=== PATIENT | female | born 1985 | race African-American/Black ===

== ENCOUNTER 2016-12-25 22:25 | Emergency (ER) | payer OTHER ==
[~2016-12-25] VITALS: Ht 160 cm; Wt 81.6 kg
[~2016-12-25 22:25] MED LIST: AZITHROMYCIN250 MG ORAL; BACTRIM-DS1 EA ORAL; BENADRYL25 MG ORAL; FAMOTIDINE20 MG ORAL; GNP THERAPEUTI1 EACH PO; HYDROCODON-ACE1 EA13 ORAL; IBUPROFEN600 MG ORAL; KEFLEX500 MG ORAL; NAPROSYN500 M1 ORAL; NEXIUM40 MG ORAL; NKM; PREDNISONE10 MG ORAL; TAMIFLU75 MG ORAL; ZANTAC150 MG ORAL; ZOFRAN ODT4 MG ORAL
--- NOTE | 2016-12-25 22:56 | Emergency Room Report ---
History of Present Illness General Chief Complaint: Vaginal Source: Patient Present Illness HPI Patient presents with complaints of possible yeast infection She reports that she has irritation and burning to her vaginal area Denies any fevers or chills denies any pelvic pain denies any dysuria frequency Denies any back or flank pain Denies any chest pain or short of breath Symptoms ongoing for the past 3 days Allergies: Coded Allergies: No Known Allergies (Unverified , 03/21/16) Patient History Past Medical History: see triage record Pertinent Family History: none Last Menstrual Period: november Reviewed Nursing Documentation: PMH: Agreed, PSxH: Agreed Nursing Documentation-PMH Hx Gastrointestinal Problems: Yes - GERD Review of Systems All Other Systems: negative except mentioned in HPI Physical Exam Vital Signs Date Time Temp Pulse Resp B/P Pulse Ox O2 Delivery O2 Flow Rate FiO2 12/25/16 22:33 98.4 81 16 128/81 98 Room Air Sp02 EP Interpretation: reviewed, normal General Appearance: well appearing, no apparent distress Head: normocephalic, atraumatic Eyes: bilateral eye EOMI, bilateral eye PERRL ENT: hearing grossly normal, normal pharynx, TMs + canals normal, uvula midline Neck: full range of motion, supple, no meningismus, no bony tend Respiratory: lungs clear, normal breath sounds, no rhonchi, no respiratory distress, no retraction, no accessory muscle use Cardiovascular #1: normal peripheral pulses, regular rate, rhythm, no edema, no gallop, no JVD, no murmur Gastrointestinal: normal bowel sounds, non tender, soft, no mass, no organomegaly, non-distended, no guarding, no hernia, no pulsatile mass, no rebound Genitourinary: no CVA tenderness, other - Mild vaginal irritation, lip or a major and minor mild erythema Musculoskeletal: back normal Neurologic: oriented x3, responsive, beauty artist III-XII nml as tested, motor strength/ tone normal, sensory intact Psychiatric: mood/affect normal Skin: normal color, no rash, warm/dry, palpation normal Lymphatic: normal inspection, no adenopathy Medical Decision Making Diagnostic Impression: Primary Impression: UTI (urinary tract infection) Additional Impression: Vaginitis ER Course She clinically appears to have evidence of vaginitis There is also evidence of UTI Patient placed on the appropriate medications and requires close outpatient followup Labs Test 12/25/16 22:43 Urine Color Lynda Urine Appearance Slightly cloudy Urine pH 6.5 (4.5-8.0) Urine Specific [place] 1.020 (1.005-1.035) Urine Protein 1+ (NEGATIVE) Urine Glucose (UA) Negative (NEGATIVE) Urine Ketones Negative (NEGATIVE) Urine Occult Blood Negative (NEGATIVE) Urine Nitrite Positive (NEGATIVE) Urine Bilirubin Negative (NEGATIVE) Urine Ictotest Negative Urine Urobilinogen Normal MG/DL (0.0-1.0) Urine Leukocyte Esterase 1+ (NEGATIVE) Urine RBC 0 /HPF (0 - 2) Urine WBC 5-10 /HPF (0 - 2) Urine Squamous Epithelial Cells Many /LPF (NONE/OCC) Urine Bacteria Many /HPF (NONE) Urine Mucus Few /LPF (NONE/OCC) Urine HCG, Qualitative Negative Chest X-Ray Diagnostic Results Chest X-Ray Ordered: No Last Vital Signs Date Time Temp Pulse Resp B/P Pulse Ox O2 Delivery O2 Flow Rate FiO2 12/25/16 22:33 98.4 81 16 128/81 98 Room Air Status: improved Disposition: HOME, SELF-CARE Condition: Stable Scripts Ciprofloxacin Hcl* (CIPROFLOXACIN HCL*) 500 Mg Tablet 500 MG ORAL Q12H, #14 TAB 0 Refills Prov: NATALIA GROVE D.O. 12/26/16 Metronidazole* (METROGEL-VAGINAL*) 70 Gm Gel.w.appl 1 APPL VAGIN EVERY 12 HOURS for 7 Days, #70 GM Prov: NATALIA GROVE D.O. 12/26/16 Additional Instructions: Patient is provided with the discharge instructions notified to follow up with primary doctor in the next 2-3 days otherwise return to the er with any worsening symptoms. Please note that this report is being documented using [employer] technology. This can lead to erroneous entry secondary to incorrect interpretation by the dictating instrument. NATALIA GROVE D.O. Dec 25, 2016 22:56
[2016-12-25 23:01] LABS: APPEARANCE,URINE SLIGHTLY CLOUDY; KETONES,URINE NEGATIVE (NEGATIVE); LEUKOCYTE ESTERASE ,URINE 1+ (NEGATIVE); NITRITE,URINE POSITIVE (NEGATIVE); PH,URINE 6.5 (4.5-8.0); PROTEIN,URINE 1+ (NEGATIVE); UROBILINOGEN,URINE NORMAL MG/DL (0.0-1.0)
[2016-12-25 23:08] LABS: BACTERIA,URINE MANY /HPF; ICTOTEST NEGATIVE; MUCUS,URINE FEW /LPF (NONE/OCC); RBC,URINE 0 /HPF (0 - 2); SQUAMOUS EPITHELIAL CELL,UR MANY /LPF (NONE/OCC)
[2016-12-26] MEDS ORDERED: CIPROFLOXACIN500 M2 ORAL (00:20)
[2016-12-26] MEDS ORDERED: METROGEL-VAGINA70 G1 VAGIN (00:20)
[2016-12-26 00:28] VITALS: BP 129/78
[2016-12-26 00:29] VITALS: BP 129/78
== END 2016-12-26 00:29 | disposition home or self-care (01) ==
LOC: EMR 23:00
DX: N39.0 Urinary tract infection, site not specified (principal); N76.0 Acute vaginitis; K21.9 Gastro-esophageal reflux disease without esophagitis
CPT/HCPCS: 81003; 81025; 87086; 99284

== ENCOUNTER 2017-05-10 18:57 | Emergency (ER) | payer OTHER ==
[~2017-05-10] VITALS: Ht 160 cm; Wt 81.6 kg
[~2017-05-10 18:57] MED LIST changes: +CIPROFLOXACIN500 M2 ORAL; +METROGEL-VAGINA70 G1 VAGIN
[2017-05-10 19:15] VITALS: BP 134/80
[2017-05-10 19:46] LABS: BASOPHILS % (AUTO) 1.2 % (0.0-2.0); EOSINOPHILS % (AUTO) 2.8 % (0.0-3.0); LYMPHOCYTES % (AUTO) 37.9 % (20.0-45.0); MEAN CORPUSCULAR HEMOGLOBIN 23.9 PG (27.0-31.0); MEAN CORPUSCULAR HGB CONC 29.1 G/DL (32.0-36.0); MEAN CORPUSCULAR VOLUME 82 FL (80-99); MONOCYTES % (AUTO) 6.7 % (1.0-10.0); NEUTROPHILS % (AUTO) 51.4 % (45.0-75.0); PLATELET COUNT 227 K/UL (150-450); RED BLOOD COUNT 4.19 M/UL (4.20-5.40); RED CELL DISTRIBUTION WIDTH 16.6 % (11.6-14.8); WHITE BLOOD COUNT 7.8 K/UL (4.8-10.8)
[2017-05-10] MEDS ORDERED: Sodium Chloride 500ML 500 ML IV ONE (19:48)
[2017-05-10] MEDS ORDERED: PEPCID40 MG PO (19:52)
--- NOTE | 2017-05-10 19:52 | Emergency Room Report ---
History of Present Illness General Chief Complaint: Abdominal Pain Source: Patient Present Illness HPI 32-year-old female history of GERD presenting with abdominal pain for a few days Patient states pain started gradually , localized to epigastric area, non radiating, burning in nature, intermittent. No relieving or exacerbating factors. Denies nvd. Denies fever, chills. No hx of abdominal surgeries. No hx of endoscopies/colonoscopies. Patient states that she was taking Prilosec at a time, but stopped because symptoms subsided Allergies: Coded Allergies: No Known Allergies (Unverified , 03/21/16) Patient History Past Medical History: see triage record Past Surgical History: none Pertinent Family History: none Last Menstrual Period: apr 04 Now: No : 1 Reviewed Nursing Documentation: PMH: Agreed, PSxH: Agreed Nursing Documentation-PMH Past Medical History: No Stated History Hx Gastrointestinal Problems: Yes - GERD Review of Systems All Other Systems: negative except mentioned in HPI Physical Exam Vital Signs Date Time Temp Pulse Resp B/P (MAP) Pulse Ox O2 Delivery O2 Flow Rate FiO2 05/10/17 19:09 98.4 101 18 134/80 98 Room Air Sp02 EP Interpretation: reviewed, normal General Appearance: normal inspection, well appearing, no apparent distress, alert, GCS 15, non-toxic Head: normocephalic, atraumatic Eyes: bilateral eye normal inspection, bilateral eye PERRL, bilateral eye EOMI ENT: normal ENT inspection, normal pharynx, normal voice, moist mucus membranes Neck: normal inspection, full range of motion, supple Respiratory: normal inspection, lungs clear, normal breath sounds, no respiratory distress, no retraction, no wheezing, speaking full sentences, chest symmetrical Cardiovascular #1: normal inspection, regular rate, rhythm, no edema, normal capillary refill Cardiovascular #2: 2+ radial (R), 2+ radial (L) Gastrointestinal: normal inspection, non tender, soft, non-distended, no guarding Musculoskeletal: normal inspection, back normal, normal range of motion, non- tender Neurologic: normal inspection, alert, oriented x3, responsive, motor strength/ tone normal, sensory intact, normal gait, speech normal Psychiatric: normal inspection, judgement/insight normal, memory normal Skin: normal inspection, normal color, no rash, warm/dry, well hydrated, normal turgor Medical Decision Making Diagnostic Impression: Primary Impression: Additional Impression: GERD (gastroesophageal reflux disease) ER Course 32-year-old female with upper abdominal pain Differential Diagnosis: GERD Gastritis, gastroenteritis,, UTI/pyelo At this time abdomen is soft nontender, not likely to have acute intra- abdominal surgical pathology, will hold CT for now. Plan: Basic labs, ua, Pepcid, maalox, pain control, IVF ER course: Patient has remained stable during ED stay. Pain improved. Repeat abdominal exam is nontender. Tolerating PO Patient's abdomen was never tender is positive No vaginal bleeding Disposition: Patient is to be discharged to home. Prescriptions given are Pepcid Patient instructed to followup with [employer] in one week Patient is instructed to follow up with their primary care doctor within 5 days. Strict return precautions discussed with patient such as fever, chills, worsening/severe abdominal pain, nausea, vomiting, black or bloody stools, which may indicate severe illness. Patient verbalizes understanding and agrees with plan. Please note that this Emergency Department Report was dictated using Netscapeenvironment[employer] quality analyst technology software, occasionally this can lead to erroneous entry secondary to interpretation by the dictation equipment Laboratory Tests Test 05/10/17 19:13 05/10/17 19:15 Urine Color Pale yellow Urine Appearance Clear Urine pH 6 (4.5-8.0) Urine Specific [place] 1.015 (1.005-1.035) Urine Protein Negative (NEGATIVE) Urine Glucose (UA) Negative (NEGATIVE) Urine Ketones Negative (NEGATIVE) Urine Occult Blood Negative (NEGATIVE) Urine Nitrite Negative (NEGATIVE) Urine Bilirubin Negative (NEGATIVE) Urine Urobilinogen Normal MG/DL (0.0-1.0) Urine Leukocyte Esterase Negative (NEGATIVE) Urine HCG, Qualitative Positive White Blood Count 7.8 K/UL (4.8-10.8) Red Blood Count 4.19 M/UL (4.20-5.40) L Hemoglobin 10.0 G/DL (12.0-16.0) L Hematocrit 34.4 % (37.0-47.0) L Mean Corpuscular Volume 82 FL (80-99) Mean Corpuscular Hemoglobin 23.9 PG (27.0-31.0) L Mean Corpuscular Hemoglobin Concent 29.1 G/DL (32.0-36.0) L Red Cell Distribution Width 16.6 % (11.6-14.8) H Platelet Count 227 K/UL (150-450) Mean Platelet Volume 7.0 FL (6.5-10.1) Neutrophils (%) (Auto) 51.4 % (45.0-75.0) Lymphocytes (%) (Auto) 37.9 % (20.0-45.0) Monocytes (%) (Auto) 6.7 % (1.0-10.0) Eosinophils (%) (Auto) 2.8 % (0.0-3.0) Basophils (%) (Auto) 1.2 % (0.0-2.0) Sodium Level 136 MMOL/L (136-145) Potassium Level 3.4 MMOL/L (3.5-5.1) L Chloride Level 102 MMOL/L (98-107) Carbon Dioxide Level 23 MMOL/L (21-32) Anion Gap 11 mmol/L (5-15) Blood Urea Nitrogen 11 mg/dL (7-18) Creatinine 0.7 MG/DL (0.55-1.30) Estimate Glomerular Filtration Rate > 60 mL/min (>60) Glucose Level 103 MG/DL (74-106) Calcium Level 9.3 MG/DL (8.5-10.1) Total Bilirubin 0.2 MG/DL (0.2-1.0) Aspartate Amino Transferase (AST) 11 U/L (15-37) L Alanine Aminotransferase (ALT) 16 U/L (12-78) Alkaline Phosphatase 79 U/L (46-116) Total Protein 7.3 G/DL (6.4-8.2) Albumin 3.7 G/DL (3.4-5.0) Globulin 3.6 g/dL Albumin/Globulin Ratio 1.0 (1.0-2.7) Lipase 137 U/L (73-393) Human Chorionic Gonadotropin, Quant Pending Last Vital Signs Date Time Temp Pulse Resp B/P (MAP) Pulse Ox O2 Delivery O2 Flow Rate FiO2 05/10/17 19:09 98.4 101 18 134/80 98 Room Air Disposition: HOME, SELF-CARE Condition: Improved Scripts Famotidine (PEPCID) 40 Mg Tablet 40 MG PO DAILY for 14 Days, #14 TAB 0 Refills Prov: Joann Gage M.D. 05/10/17 Patient Instructions: Abdominal Pain, Adult, Gastritis, Adult Retino,Clairose M.D. May 10, 2017 19:52
[2017-05-10] MEDS ORDERED: Dicyclomine HCl 10mg/5ml oral soln ORAL ONE (20:00)
[2017-05-10] MEDS ORDERED: Mylanta II UD 30ml ORAL ONE (20:00)
[2017-05-10] MEDS ORDERED: Lidocaine 2% Visc 15ml soln ORAL ONE (20:00)
[2017-05-10 20:02] LABS: APPEARANCE,URINE CLEAR; KETONES,URINE NEGATIVE (NEGATIVE); LEUKOCYTE ESTERASE ,URINE NEGATIVE (NEGATIVE); NITRITE,URINE NEGATIVE (NEGATIVE); PH,URINE 6 (4.5-8.0); PROTEIN,URINE NEGATIVE (NEGATIVE); UROBILINOGEN,URINE NORMAL MG/DL (0.0-1.0)
[2017-05-10 20:26] LABS: ALANINE AMINOTRANSFERASE 16 U/L (12-78); ANION GAP 11 mmol/L (5-15); ASPARTATE AMINO TRANSFERASE 11 U/L (15-37); CALCIUM 9.3 MG/DL (8.5-10.1); CARBON DIOXIDE 23 MMOL/L (21-32); CHLORIDE 102 MMOL/L (98-107); CREATININE 0.7 MG/DL (0.55-1.30); GLOMERULAR FILTRATION RATE > 60 mL/min (>60); LIPASE 137 U/L (73-393); POTASSIUM 3.4 MMOL/L (3.5-5.1); SODIUM 136 MMOL/L (136-145); TOTAL PROTEIN 7.3 G/DL (6.4-8.2)
[2017-05-10 21:15] VITALS: BP_SYST 127; BP_SYST 134; BP_DIAS 80; BP_DIAS 83
== END 2017-05-10 21:15 | disposition home or self-care (01) ==
LOC: EMR 20:42
DX: O26.899 Other specified pregnancy related conditions, unspecified trimester (principal); Z3A.00 Weeks of gestation of pregnancy not specified; K21.9 Gastro-esophageal reflux disease without esophagitis; R10.13 Epigastric pain
CPT/HCPCS: 36415; 80053; 81003; 81025; 83690; 84702; 85025; 96361; 96374; 96375; 99284; J7040; S0028

== ENCOUNTER 2017-09-14 10:18 | Emergency (ER) | payer OTHER ==
[~2017-09-14] VITALS: Ht 160 cm; Wt 88.5 kg
[~2017-09-14 10:18] MED LIST changes: +PEPCID40 MG PO
[2017-09-14] MEDS ORDERED: Pseudoephedrine 30mg tab ORAL ONE (11:00)
[2017-09-14] MEDS ORDERED: Acetaminophen 500mg (ES) tab ORAL ONE (11:00)
[2017-09-14 12:56] LABS: APPEARANCE,URINE SLIGHTLY CLOUDY; BILIRUBIN, URINE NEGATIVE (NEGATIVE); COLOR,URINE PALE YELLOW; GLUCOSE, URINE (UA) NEGATIVE (NEGATIVE); KETONES,URINE 4+ (NEGATIVE); LEUKOCYTE ESTERASE ,URINE 1+ (NEGATIVE); NITRITE,URINE POSITIVE (NEGATIVE); PH,URINE 6 (4.5-8.0); PROTEIN,URINE NEGATIVE (NEGATIVE); UROBILINOGEN,URINE NORMAL MG/DL (0.0-1.0)
--- NOTE | 2017-09-14 13:59 | Emergency Room Report ---
History of Present Illness General Chief Complaint: Flu Like Symptoms Source: Patient Present Illness HPI Patient with URI. 5 months with twins. Took children's tylenol last night. Fevers, aches, sore throat, nasal congestion and cough. Denies wheezing. Pain rated 10/10, constant, all of body, throat. No NVD, no dysuria. No vaginal d/c. Babies moving. No leg swelling or calf tenderness. EDC 6/2. Still working with child at home. 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) Last Menstrual Period: 5 months ago Now: Yes : 2 Para: 1 Reviewed Nursing Documentation: PMH: Agreed, PSxH: Agreed Nursing Documentation-PMH Past Medical History: No Stated History Hx Gastrointestinal Problems: Yes - GERD Review of Systems All Other Systems: negative except mentioned in HPI Physical Exam Vital Signs Date Time Temp Pulse Resp B/P (MAP) Pulse Ox O2 Delivery O2 Flow Rate FiO2 09/14/17 10:35 101.1 126 20 112/68 99 Room Air 101.1 Sp02 EP Interpretation: reviewed, normal General Appearance: well appearing, no apparent distress, GCS 15 Head: normocephalic, atraumatic Eyes: bilateral eye normal inspection, bilateral eye PERRL ENT: TMs + canals normal, moist mucus membranes, pharyngeal erythema Neck: supple Respiratory: lungs clear, normal breath sounds Cardiovascular #1: regular rate, rhythm Cardiovascular #2: 2+ radial (R) Gastrointestinal: normal inspection, normal bowel sounds, non tender, non- distended, other - gravid Genitourinary: no CVA tenderness, other - ultrasound with both babies moving and normal HRs (tachyy) Musculoskeletal: back normal, gait/station normal, normal range of motion, no calf tenderness Neurologic: alert, oriented x3, grossly normal Psychiatric: mood/affect normal Skin: normal inspection, warm/dry Medical Decision Making Diagnostic Impression: Primary Impression: Upper respiratory infection Qualified Codes: J06.9 - Acute upper respiratory infection, unspecified Additional Impression: , twins Qualified Codes: O30.002 - Twin , unspecified number of placenta and unspecified number of amniotic sacs, second trimester ER Course Patient 5 month /twins with URI. DDx: bronchitis, URI, pharyngitis amongst others. Febrile. Symptomatic treatment. Evaluation of . UA checked. Based on ox, not pneumonia. Consider influenza but was vaccinated and post-peak. UA with nitrites and 2-4 WBC. Discussed with OB who suggests following and not treating with antibiotics. Improved with treatment and sleeping. Patient stable for outpatient treatment and observation. Plant to see OB tomorrow. Laboratory Tests Test 09/14/17 11:12 Urine Color Pale yellow Urine Appearance Slightly cloudy Urine pH 6 (4.5-8.0) Urine Specific [place] 1.020 (1.005-1.035) Urine Protein Negative (NEGATIVE) Urine Glucose (UA) Negative (NEGATIVE) Urine Ketones 4+ (NEGATIVE) H Urine Occult Blood Negative (NEGATIVE) Urine Nitrite Positive (NEGATIVE) H Urine Bilirubin Negative (NEGATIVE) Urine Urobilinogen Normal MG/DL (0.0-1.0) Urine Leukocyte Esterase 1+ (NEGATIVE) H Urine RBC 0-2 /HPF (0 - 2) Urine WBC 2-4 /HPF (0 - 2) Urine Squamous Epithelial Cells Moderate /LPF (NONE/OCC) H Urine Bacteria Few /HPF (NONE) Last Vital Signs Date Time Temp Pulse Resp B/P (MAP) Pulse Ox O2 Delivery O2 Flow Rate FiO2 09/14/17 14:20 98.2 102 16 111/64 96 Room Air Status: improved Disposition: HOME, SELF-CARE Condition: Improved Scripts Guaifenesin/Dextromethorphan (ROBITUSSIN COUGH-CHEST DM LIQ) 237 Ml Liquid 5 ML PO Q6HR, #90 ML Prov: Elvis Garcia M.D. 09/14/17 Pseudoephedrine Hcl* (SUDAFED*) 30 Mg Tablet 30 MG PO Q6H, #14 TAB 1 Refill Prov: Elvis Garcia M.D. 09/14/17 Referrals: [facility]ERR[facility] (PCP) Elvis Garcia M.D. Sep 14, 2017 13:59
[2017-09-14] MEDS ORDERED: PSEUDOEPHEDRINE30 MG PO (14:07)
[2017-09-14] MEDS ORDERED: ROBITUSSIN COU237 M1 PO (14:07)
[2017-09-14 14:20] VITALS: BP 111/64
== END 2017-09-14 14:21 | disposition home or self-care (01) ==
LOC: EMR 11:50
DX: O30.002 Twin pregnancy, unspecified number of placenta and unspecified number of amniotic sacs, second trimester (principal); O26.892 Other specified pregnancy related conditions, second trimester; J06.9 Acute upper respiratory infection, unspecified; K21.9 Gastro-esophageal reflux disease without esophagitis
CPT/HCPCS: 81003; 99284

== ENCOUNTER 2017-10-20 19:15 | Emergency (ER) | payer OTHER ==
[~2017-10-20] VITALS: Ht 160 cm; Wt 92.5 kg
[~2017-10-20 19:15] MED LIST changes: +PSEUDOEPHEDRINE30 MG PO; +ROBITUSSIN COU237 M1 PO
[2017-10-20 19:30] VITALS: BP 109/69
--- NOTE | 2017-10-20 19:42 | Emergency Room Report ---
History of Present Illness General Chief Complaint: Vaginal Source: Patient Present Illness HPI Patient is a 32-year-old female who presented after increased vaginal pain. The patient reports having sharp pain. She is reportedly with twin gestations approximately 27 weeks. The patient does not know her exact dates however she states her EDC is December 20. The patient denies any vaginal bleeding. She did denies any discharge. She denies any leakage of fluid. She denied having any regular contractions. Allergies: Coded Allergies: No Known Allergies (Unverified , 03/21/16) Patient History Past Medical History: see triage record Last Menstrual Period: Apr 2017 Now: Yes - 7 months Reviewed Nursing Documentation: PMH: Agreed; PSxH: Agreed Nursing Documentation-PMH Past Medical History: No Stated History Hx Gastrointestinal Problems: Yes - GERD Review of Systems All Other Systems: negative except mentioned in HPI Physical Exam Vital Signs Date Time Temp Pulse Resp B/P (MAP) Pulse Ox O2 Delivery O2 Flow Rate FiO2 10/20/17 19:27 98.6 89 18 109/69 98 Room Air 98.6 Sp02 EP Interpretation: reviewed, normal General Appearance: normal inspection, well appearing, no apparent distress, alert, GCS 15 Head: atraumatic ENT: normal ENT inspection, hearing grossly normal, normal voice Neck: normal inspection, full range of motion, supple, no bony tend Respiratory: normal inspection, lungs clear, normal breath sounds, no respiratory distress, no retraction, no wheezing Cardiovascular #1: regular rate, rhythm, no edema Gastrointestinal: normal inspection, normal bowel sounds, non tender, soft, no guarding, no hernia, other - gravid uterus Genitourinary: no CVA tenderness Musculoskeletal: normal inspection, back normal, normal range of motion Neurologic: normal inspection, alert, responsive, speech normal Psychiatric: normal inspection, judgement/insight normal, mood/affect normal Skin: normal inspection, normal color, no rash Medical Decision Making Diagnostic Impression: Primary Impression: Abdominal pain Additional Impressions: Intrauterine Twin gestation in third trimester ER Course Patient presented for abdominal pain. Differential diagnoses included demise, abruption, ischemic bowel, appendicitis, perforated viscus, abdominal aortic aneurysm, inferior myocardial infarction, viral gastroenteritis. The bedside ultrasound was performed which showed twin intrauterine pregnancies with adequate heart tones and movement. The patient denies any leakage of fluid or bleeding. The patient appears to be stable for discharge. The patient is advised to recheck with [facility] as soon as possible for recheck. The patient does not appear to be in labor and had no contractions or pain while in ED. Last Vital Signs Date Time Temp Pulse Resp B/P (MAP) Pulse Ox O2 Delivery O2 Flow Rate FiO2 10/20/17 19:27 98.6 89 18 109/69 98 Room Air 98.6 Status: improved Disposition: HOME, SELF-CARE Condition: Stable Pedro Luis Perdomo Oct 20, 2017 19:42
[2017-10-20 19:55] VITALS: BP 109/69
== END 2017-10-20 19:55 | disposition home or self-care (01) ==
LOC: EMR 19:50
DX: O26.893 Other specified pregnancy related conditions, third trimester (principal); R10.9 Unspecified abdominal pain; Z3A.00 Weeks of gestation of pregnancy not specified; K21.9 Gastro-esophageal reflux disease without esophagitis
CPT/HCPCS: 99283

== ENCOUNTER 2019-02-12 23:18 | Emergency (ER) | payer OTHER ==
[~2019-02-12] VITALS: Ht 160 cm; Wt 93.0 kg
[2019-02-12 23:45] VITALS: BP 143/96
[2019-02-12 23:49] LABS: APPEARANCE,URINE SLIGHTLY CLOUDY; BILIRUBIN, URINE NEGATIVE (NEGATIVE); GLUCOSE, URINE (UA) NEGATIVE (NEGATIVE); KETONES,URINE NEGATIVE (NEGATIVE); LEUKOCYTE ESTERASE ,URINE NEGATIVE (NEGATIVE); NITRITE,URINE NEGATIVE (NEGATIVE); PH,URINE 5 (4.5-8.0); PROTEIN,URINE 2+ (NEGATIVE); UROBILINOGEN,URINE NORMAL MG/DL (0.0-1.0)
--- NOTE | 2019-02-12 23:49 | Emergency Room Report ---
History of Present Illness General Chief Complaint: Abdominal Pain Source: Patient Present Illness HPI 34-year-old female history of 2 sections, presents with acute nausea and vomiting, and diarrhea, no blood, x1 day, achy abdominal pain mild severity , no aggravating or alleviating factors patient has been trying to drink milk to , stomach, which has not helped, no fever no chills, no current sick contacts, no chest pain, no shortness of breath patient presents for evaluation Allergies: Coded Allergies: No Known Allergies (Unverified , 03/21/16) Patient History Past Medical History: see triage record Last Menstrual Period: 01/25/19 Now: No : 2 Para: 2 Reviewed Nursing Documentation: PMH: Agreed; PSxH: Agreed Nursing Documentation-PMH Past Medical History: No History, Except For Hx Gastrointestinal Problems: Yes - GERD Review of Systems Constitutional: Denies: chills, fever Eye: Denies: blurred vision, double vision ENT: Denies: throat pain, nasal discharge Respiratory: Denies: cough, shortness of breath Cardiovascular: Denies: chest pain, palpitations Gastrointestinal: Reports: abdominal pain, diarrhea, nausea, vomiting Genitourinary: Denies: dysuria, pain Musculoskeletal: Denies: back pain, muscle pain Skin: Denies: rash, lesions Neurological: Denies: headache, focal weakness Hematologic/Lymphatic: Denies: easy bleeding, easy bruising All Other Systems: negative except mentioned in HPI Physical Exam Vital Signs Date Time Temp Pulse Resp B/P (MAP) Pulse Ox O2 Delivery O2 Flow Rate FiO2 02/12/19 23:20 99.0 89 18 143/96 (112) 97 Room Air Sp02 EP Interpretation: reviewed, normal General Appearance: well appearing, no apparent distress, alert Head: normocephalic, atraumatic Eyes: bilateral eye PERRL, bilateral eye EOMI ENT: uvula midline, moist mucus membranes Neck: supple, thyroid normal, supple/symm/no masses Respiratory: lungs clear, no respiratory distress, no retraction, no accessory muscle use Cardiovascular #1: normal peripheral pulses, regular rate, rhythm, no edema, no gallop, no murmur Gastrointestinal: non tender, soft, no guarding, no rebound Musculoskeletal: normal inspection Neurologic: alert, oriented x3 Psychiatric: mood/affect normal Skin: no rash, warm/dry Medical Decision Making ER Course 34-year-old female presents for acute nausea and vomiting, no tenderness on exam , on the differential includes diverticulitis, appendicitis, gastroenteritis, labs are drawn, unremarkable, patient was resuscitated, patient has no tenderness on exam, low suspicion for acute emergent pathology, will provide patient with Zofran, patient counseled on the BRAT diet, will dispo patient home Laboratory Tests Test 02/12/19 23:40 White Blood Count 8.2 K/UL (4.8-10.8) Red Blood Count 4.27 M/UL (4.20-5.40) Hemoglobin 11.3 G/DL (12.0-16.0) L Hematocrit 35.0 % (37.0-47.0) L Mean Corpuscular Volume 82 FL (80-99) Mean Corpuscular Hemoglobin 26.4 PG (27.0-31.0) L Mean Corpuscular Hemoglobin Concent 32.2 G/DL (32.0-36.0) Red Cell Distribution Width 13.7 % (11.6-14.8) Platelet Count 213 K/UL (150-450) Mean Platelet Volume 7.7 FL (6.5-10.1) Neutrophils (%) (Auto) 66.8 % (45.0-75.0) Lymphocytes (%) (Auto) 23.5 % (20.0-45.0) Monocytes (%) (Auto) 5.0 % (1.0-10.0) Eosinophils (%) (Auto) 4.1 % (0.0-3.0) H Basophils (%) (Auto) 0.7 % (0.0-2.0) Urine Color Yellow Urine Appearance Slightly cloudy Urine pH 5 (4.5-8.0) Urine Specific [place] 1.025 (1.005-1.035) Urine Protein 2+ (NEGATIVE) H Urine Glucose (UA) Negative (NEGATIVE) Urine Ketones Negative (NEGATIVE) Urine Blood Negative (NEGATIVE) Urine Nitrite Negative (NEGATIVE) Urine Bilirubin Negative (NEGATIVE) Urine Urobilinogen Normal MG/DL (0.0-1.0) Urine Leukocyte Esterase Negative (NEGATIVE) Urine RBC 0-2 /HPF (0 - 2) Urine WBC 0-2 /HPF (0 - 2) Urine Squamous Epithelial Cells Moderate /LPF (NONE/OCC) H Urine Bacteria Few /HPF (NONE) Urine HCG, Qualitative Negative (NEGATIVE) Sodium Level 137 MMOL/L (136-145) Potassium Level 3.5 MMOL/L (3.5-5.1) Chloride Level 102 MMOL/L (98-107) Carbon Dioxide Level 27 MMOL/L (21-32) Anion Gap 8 mmol/L (5-15) Blood Urea Nitrogen 10 mg/dL (7-18) Creatinine 0.8 MG/DL (0.55-1.30) Estimate Glomerular Filtration Rate > 60 mL/min (>60) Glucose Level 116 MG/DL (74-106) H Calcium Level 8.9 MG/DL (8.5-10.1) Total Bilirubin 0.2 MG/DL (0.2-1.0) Aspartate Amino Transferase (AST) 14 U/L (15-37) L Alanine Aminotransferase (ALT) 17 U/L (12-78) Alkaline Phosphatase 74 U/L (46-116) Total Protein 7.4 G/DL (6.4-8.2) Albumin 3.9 G/DL (3.4-5.0) Globulin 3.5 g/dL Albumin/Globulin Ratio 1.1 (1.0-2.7) Lipase 110 U/L (73-393) Human Chorionic Gonadotropin, Quant < 1 mIU/mL (1-6) L Last Vital Signs Date Time Temp Pulse Resp B/P (MAP) Pulse Ox O2 Delivery O2 Flow Rate FiO2 02/12/19 23:45 89 18 Room Air 02/12/19 23:45 99.0 143/96 97 Disposition: HOME, SELF-CARE Condition: Stable Scripts Ondansetron Odt* (ZOFRAN ODT*) 8 Mg Tab.rapdis 8 MG ORAL Q8H PRN for Nausea & Vomiting, #30 TAB Prov: Pankaj Black MD 02/13/19 Referrals: [facility] Patient Instructions: Abdominal Pain, Adult, Viral Gastroenteritis, Adult Additional Instructions: The patient was provided with discharge instructions, notified to follow-up with a primary care doctor and or specialist in the next 24-48 hours, and to return to the ED if they have worsening of their symptoms. Please note that this report is being documented using [employer] technology. This can lead to erroneous entry secondary to incorrect interpretation by the dictating instrument. Pankaj Black MD Feb 12, 2019 23:49
[2019-02-12 23:50] LABS: BASOPHILS % (AUTO) 0.7 % (0.0-2.0); EOSINOPHILS % (AUTO) 4.1 % (0.0-3.0); HEMOGLOBIN 11.3 G/DL (12.0-16.0); LYMPHOCYTES % (AUTO) 23.5 % (20.0-45.0); MEAN CORPUSCULAR VOLUME 82 FL (80-99); NEUTROPHILS % (AUTO) 66.8 % (45.0-75.0); PLATELET COUNT 213 K/UL (150-450); RED BLOOD COUNT 4.27 M/UL (4.20-5.40); RED CELL DISTRIBUTION WIDTH 13.7 % (11.6-14.8); WHITE BLOOD COUNT 8.2 K/UL (4.8-10.8)
--- NOTE | 2019-02-12 23:50 | NUR ---
ED Nurse Note: Patient walked in to ER c/o abdominal pain, N/V/D. AAO x4, VSS at this time, skin is dry warm to touch.
[2019-02-12 23:57] LABS: COLOR,URINE YELLOW
[2019-02-13] MEDS ORDERED: Ketorolac 30mg Inj IV ONE
[2019-02-13 00:03] LABS: ANION GAP 8 mmol/L (5-15); BLOOD UREA NITROGEN 10 mg/dL (7-18); CALCIUM 8.9 MG/DL (8.5-10.1); CARBON DIOXIDE 27 MMOL/L (21-32); CHLORIDE 102 MMOL/L (98-107); CREATININE 0.8 MG/DL (0.55-1.30); POTASSIUM 3.5 MMOL/L (3.5-5.1); SODIUM 137 MMOL/L (136-145)
[2019-02-13 00:07] LABS: ALANINE AMINOTRANSFERASE 17 U/L (12-78); ALBUMIN 3.9 G/DL (3.4-5.0); ALBUMIN/GLOBULIN RATIO 1.1 (1.0-2.7); ALKALINE PHOSPHATASE 74 U/L (46-116); ASPARTATE AMINO TRANSFERASE 14 U/L (15-37); BILIRUBIN,TOTAL 0.2 MG/DL (0.2-1.0)
[2019-02-13] MEDS ORDERED: ZOFRAN ODT8 MG ORAL (00:55)
[2019-02-13 01:02] VITALS: BP 143/96
[2019-02-13] MEDS ORDERED: PEPCID AC20 M2 PO (01:02)
--- NOTE | 2019-02-13 01:04 | NUR ---
ER DISCHARGE NOTE: Patient is cleared to be discharged per ERMD, pt is aox4, on room air, with stable vital signs. pt was given dc and prescription instructions, pt was able to verbalize understanding, pt id band and iv site removed without complications. pt is able to ambulate with steady gait. pt took all belongings.
== END 2019-02-13 01:04 | disposition home or self-care (01) ==
LOC: EMR 23:51
DX: R11.2 Nausea with vomiting, unspecified (principal); R19.7 Diarrhea, unspecified; K21.9 Gastro-esophageal reflux disease without esophagitis; R10.9 Unspecified abdominal pain
CPT/HCPCS: 36415; 80053; 81003; 81025; 83690; 84702; 85025; 96361; 96374; 96375; 99284; J1885; J2405; S0028

== ENCOUNTER 2020-03-18 11:04 | Emergency (ER) | payer OTHER ==
[~2020-03-18] VITALS: Ht 160 cm; Wt 86.2 kg
[~2020-03-18 11:04] MED LIST changes: +PEPCID AC20 M2 PO; +ZOFRAN ODT8 MG ORAL
--- NOTE | 2020-03-18 11:10 | NUR ---
ED Nurse Note: Pt walked in frmo home c/ left arm pain since this morning. Pt denes injury to affected area. Respirations even and unlabored on room air. Vitals stable as documented. A+Ox4, speaking in full sentences.
[2020-03-18 11:26] VITALS: BP 152/97
[2020-03-18] MEDS ORDERED: ROBAXIN-750750 MG PO (11:42)
[2020-03-18] MEDS ORDERED: IBUPROFEN600 M1 ORAL (11:42)
--- NOTE | 2020-03-18 11:44 | NUR ---
ED Nurse Note: urine collected and sent to lab
--- NOTE | 2020-03-18 11:44 | Emergency Room Report ---
History of Present Illness General Chief Complaint: Upper Extremity Injury Source: Patient Present Illness HPI Patient is a 35-year-old female no prior medical history who presents with atraumatic left bicep pain. 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 Denies numbness, tingling, paresthesia, back pain, neck pain, chest pain, shortness of breath, hemoptysis, history of blood clot, nausea, vomiting, diarrhea. Last menstrual period was 2 weeks ago. The patient's symptoms were gradual onset, severity was moderate, duration since 2 days. Quality: Aching Past medical history: Denies Past surgical history: Denies Smoking: Denies Alcohol use: Denies Drug use: Denies Review of systems: CONST: No fevers or chills, No night sweats PULMONARY: No productive cough, No shortness of breath CARDIAC: No chest pain, No palpitations GI: No vomiting, No diarrhea , No melena_or_BRBPR : No dysuria, No hematuria, No discharge NEURO: No new_focal_weakness_or_numbness, No confusion, No vision changes 14 point Review of Systems is otherwise negative except per HPI Physical Exam: GENERAL: Awake_alert_ nontoxic, no acute distress Spo2 98% on RA -normal EYES: Extraocular muscles are intact. Conjunctivae clear. Lids without swelling ENT: External nose and ear normal_in_appearance. Oropharynx clear. Head_ atraumatic, Moist_oral_mucosa NECK: No JVD. No meningismus. No thyromegaly. Supple. Trachea midline RESP: Normal respiratory effort. Symmetric rise. No stridor. Clear_to_ auscultation_No_rales_No_wheezes CARDIAC: Regular rate and regular rhytm. No_significant pedal edema. ABDOMEN: Soft. Nondistended. Nontender_No_rebound_or_guarding. MSK: Normal muscle tone, without rigidity. Extremities without asymmetric deformity or swelling. Plus out of 5 muscle strength bilateral upper extremity. compartments are soft and compressible. Sensation is intact to light touch. Mild tenderness palpation of left bicep. No palpable hemarthrosis, hematoma, abscess SKIN: Warm and dry. No visible cyanosis or pallor NEUROLOGIC: Alert, oriented x3. Motor_and_sensation_grossly_intact. No truncal ataxia. Gait_normal Psych: Normal mood and affect, normal judgment and insight - COORDINATION OF CARE Case was discussed with: Patient Any labs and imaging that were ordered were interpreted as part of the medical decision making: Medical Decision Making/Plan: Differential diagnosis includes musculoskeletal pain, ligamentous injury, muscle sprain/strain Doubt fracture, dislocation, compartment syndrome, arterial occlusion, nerve damage, among others. Patient is a well-appearing healthy 35-year-old female complaining of left bicep pain after throwing parcels at work. There are no deformities on exam. No focal neurologic deficits. Compartments are soft and compressible. There is no significant pain with range of motion of the left shoulder, elbow, or wrist. No palpable hemarthrosis, abscess, or any other injuries. Distally the patient has capillary refill <2 seconds and strong pulses. There is no pallor or pain out of proportion to exam. There is no significant swelling, deformity, or report of significant dislocation that subsequently reduced. No evidence of arterial occlusion or injury. The associated joints have full range of motion without any significant pain or restriction in mobility. No evidence at this time of major ligamentous disruption. Suspect musculoskeletal etiology. Will prescribe NSAIDs and muscle relaxant. Patient has been educated not to drive or operate heavy machinery while taking muscle relaxant as it is a sedative substance. She verbalizes her understanding. Patient will be placed in a sling for comfort. I have advised her to mobilize her arm at nighttime to prevent arthritis. 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 Reassessed following splint application. Neurovascular intact. Compartments remain soft and compressible. Pt tolerated well without complications. Splint care instructions were discussed. Pt to follow up with orthopedics within 1 week to prevent future arthritis and fdc disability. Medical Decision Making Diagnostic Impression: Primary Impression: Biceps strain Last Vital Signs Date Time Temp Pulse Resp B/P (MAP) Pulse Ox O2 Delivery O2 Flow Rate FiO2 03/18/20 11:26 98.5 88 18 152/97 98 Room Air Disposition: HOME, SELF-CARE Admit Decision Time: 11:42 Condition: Stable Scripts Methocarbamol* (ROBAXIN-750*) 750 Mg Tablet 750 MG PO TID, #21 TAB 0 Refills Prov: Christina Hoffman D.O. 03/18/20 Ibuprofen* (MOTRIN*) 600 Mg Tablet 600 MG ORAL Q6H PRN for FOR PAIN, #20 TAB 0 Refills Prov: Christina Hoffman D.O. 03/18/20 Departure Forms: Return to Work Return to Work in (Days): 3 Return to Work Date: Mar 21, 2020 Patient Instructions: Muscle Strain, [id number] Additional Instructions: Instructions for patient/physician office assistant: Follow up with your physician in 1-2 days. Follow-up with your doctor sooner if your condition requires a more timely clinical reevaluation. Return to the emergency department immediately if you feel that your condition is worsening or if you have any new or concerning symptoms. Review your discharge instructions and take any prescriptions given as instructed. Please use left upper extremity sling only for comfort. Mobilize at night to prevent arthritis. Do not drive while taking Robaxin or operate heavy machinery. It is sedating Christina Hoffman D.O. Mar 18, 2020 11:44
[2020-03-18 12:45] VITALS: BP 145/90
--- NOTE | 2020-03-18 12:45 | NUR ---
ER DISCHARGE NOTE: Patient is cleared to be discharged per ERMD, pt is aox4, on room air, with stable vital signs. pt was given dc and prescription instructions, pt was able to verbalize understanding, pt id band removed. pt is able to ambulate with steady gait. pt took all belongings.
== END 2020-03-18 12:45 | disposition home or self-care (01) ==
LOC: EMR 11:50
DX: S46.212A Strain of muscle, fascia and tendon of other parts of biceps, left arm, initial encounter (principal); X50.3XXA Overexertion from repetitive movements, initial encounter; Y92.9 Unspecified place or not applicable; Y99.0 Civilian activity done for income or pay; K21.9 Gastro-esophageal reflux disease without esophagitis
CPT/HCPCS: 81025; Z7502; 99282

== ENCOUNTER 2020-09-10 14:04 | Emergency (ER) | payer OTHER ==
[~2020-09-10] VITALS: Ht 160 cm; Wt 95.3 kg
[~2020-09-10 14:04] MED LIST changes: +IBUPROFEN600 M1 ORAL; +ROBAXIN-750750 MG PO
--- NOTE | 2020-09-10 15:05 | NUR ---
pt states pulling and pain in L arm over past few days. pt denies trauma. pt able to move head without complications. pt able to move L hand, denies numbness or tingling. pt denies pmh, denies allergies to medication. pt denies cough/fever. pt denies being .
--- NOTE | 2020-09-10 15:12 | Emergency Room Report ---
History of Present Illness General Chief Complaint: Pain Source: Patient Present Illness HPI Patient is a 35-year-old female presents for increased left-sided upper extremity pain. Reports having increased difficulty with extending her left elbow. Reports having pulling sensation to the left side of her of her chest when moving her arm. Denies any other current complaints or prior medical history. Denies any fever or cough. No numbness or weakness to her hands. Patient is right-hand dominant. She states he works in the [employer]. Denies any recent trauma. Reports having pulling sensation to the left shoulder. Denies chance of . Allergies: Coded Allergies: No Known Allergies (Unverified , 03/21/16) COVID-19 Screening Contact w/high risk pt: No Experienced COVID-19 symptoms?: No COVID-19 Testing performed JOB DEVELOPMENT SPECIALIST: Yes COVID-19 Screening: Negative COVID-19 COVID-19 Testing Source: RELOCATION COUNSELOR Patient History Past Medical History: see triage record Now: No Reviewed Nursing Documentation: PMH: Agreed; PSxH: Agreed Nursing Documentation-PMH Past Medical History: No History, Except For Hx Gastrointestinal Problems: Yes - GERD Review of Systems All Other Systems: negative except mentioned in HPI Physical Exam Vital Signs Date Time Temp Pulse Resp B/P (MAP) Pulse Ox O2 Delivery O2 Flow Rate FiO2 09/10/20 14:07 97.9 99 16 176/105 (128) 99 Room Air General Appearance: well appearing, no apparent distress, alert, GCS 15 Head: normocephalic, atraumatic ENT: hearing grossly normal, normal voice Neck: full range of motion, supple Respiratory: no respiratory distress, speaking full sentences Cardiovascular #1: normal inspection, regular rate, rhythm, edema Gastrointestinal: normal inspection, soft Musculoskeletal: decreased range of mation - Decreased ability to extend at the elbow, no joint tenderness or deformity., other - Decreased range of motion to the left elbow. Neurologic: alert, motor strength/tone normal, cutting machine tender helper III-XII nml as tested, oriented x3, normal gait Psychiatric: mood/affect normal Skin: no rash Medical Decision Making Diagnostic Impression: Primary Impression: Biceps tendinitis on left ER Course Presents for left upper extremity pain. Differential diagnosis include was not limited to rotator cuff injury, biceps tendinitis, pectoral strain, among others. Because of complexity of patient's case imaging studies were ordered. Last Vital Signs Date Time Temp Pulse Resp B/P (MAP) Pulse Ox O2 Delivery O2 Flow Rate FiO2 09/10/20 14:07 97.9 99 16 176/105 (128) 99 Room Air Pedro Luis Perdomo MD Sep 10, 2020 15:12
[2020-09-10] MEDS ORDERED: Ketorolac 60mg Inj IM ONE (15:15)
[2020-09-10] MEDS ORDERED: IBUPROFEN600 M1 ORAL (16:21)
[2020-09-10] MEDS ORDERED: VOLTAREN100 G1 TP (16:21)
[2020-09-10 16:44] VITALS: BP 176/105
--- NOTE | 2020-09-10 16:45 | NUR ---
discharged home with instruction and rx follow up with pmd
--- NOTE | 2020-09-10 16:51 | Diagnostic Imaging Report ---
EXAM: X-RAY XRAY Shoulder Compl L CLINICAL HISTORY: Shoulder pain. COMPARISON: None FINDINGS: Total of 3 views of the left shoulder were obtained. Alignment is anatomic. There is no fracture, bony lesions or erosions. Joint spaces are unremarkable. Surrounding soft tissue is normal. IMPRESSION: NO FRACTURE.
--- NOTE | 2020-09-10 16:52 | Diagnostic Imaging Report ---
EXAM: X-RAY XRAY Elbow Min 3v L CLINICAL HISTORY: Elbow pain. COMPARISON: None FINDINGS: Total of 3 limited views of the left elbow were obtained. Alignment is anatomic. There is no fracture, bony lesions or erosions. Joint spaces are unremarkable. Surrounding soft tissue is normal. IMPRESSION: NO ACUTE BONY ABNORMALITY SEEN.
== END 2020-09-10 16:46 | disposition home or self-care (01) ==
LOC: EMR 16:00
DX: M75.22 Bicipital tendinitis, left shoulder (principal)
CPT/HCPCS: 73030; 73080; 81025; 96372; Z7502; 99284